=== PATIENT | male | born 1955 | race Two or more races ===

== ENCOUNTER 2020-09-03 10:15 | Inpatient (IN) | payer OTHER ==
[~2020-09-03] VITALS: Ht 165.1 cm; Wt 66.2 kg
[2020-09-03] MEDS ORDERED: COZAAR25 MG PO (15:02)
[2020-09-08] MEDS ORDERED: PANTOPRAZOLE SO40 MG (15:34)
[2020-09-08] MEDS ORDERED: VITAMIN D31250 MCG (15:34)
[2020-09-11] MEDS ORDERED: IMODIUM A-D2 MG PO (17:48)
[2020-09-12] MEDS ORDERED: ULTRACET PO (13:23)
[2020-09-12] MEDS ORDERED: TAMS0.4C PO (13:23)
== END 2020-09-12 15:57 | disposition home or self-care (01) | DRG 330 ==
LOC: O/R 09-08 08:00 → SURH 09-08 08:00
PROVIDERS: Surgery; ADMIT Colon & Rectal Surgery; ATTEND Colon & Rectal Surgery
PROC: 0D1B4Z4 Bypass Ileum to Cutaneous, Percutaneous Endoscopic Approach (ICD-10-PCS; principal; 2020-09-08 09:15)
PROC: 0T9B80Z Drainage of Bladder with Drainage Device, Via Natural or Artificial Opening Endoscopic (ICD-10-PCS; 2020-09-08 09:15)
DX: C18.3 Malignant neoplasm of hepatic flexure (principal); C78.6 Secondary malignant neoplasm of retroperitoneum and peritoneum; T83.83XA Hemorrhage due to genitourinary prosthetic devices, implants and grafts, initial encounter; N40.1 Benign prostatic hyperplasia with lower urinary tract symptoms; R31.0 Gross hematuria; I11.9 Hypertensive heart disease without heart failure; D50.0 Iron deficiency anemia secondary to blood loss (chronic); Y73.8 Miscellaneous gastroenterology and urology devices associated with adverse incidents, not elsewhere classified; R39.14 Feeling of incomplete bladder emptying; Z85.038 Personal history of other malignant neoplasm of large intestine

== ENCOUNTER 2022-05-31 15:07 | Inpatient (IN) | payer OTHER ==
[~2022-05-31] VITALS: Ht 165.1 cm; Wt 65.3 kg
[~2022-05-31 15:07] MED LIST: COZAAR25 MG PO; IMODIUM A-D2 MG PO; PANTOPRAZOLE SO40 MG; TAMS0.4C PO; ULTRACET PO; VITAMIN D31250 MCG
[2022-06-08] MEDS ORDERED: VITAMIN D31250 MCG (09:14)
== END 2022-06-10 14:05 | disposition home or self-care (01) | DRG 330 ==
LOC: O/R 06-07 05:55 → SURH 06-07 07:00 → SURG 06-07 13:56 → SURH 06-07 15:42
PROVIDERS: ADMIT Colon & Rectal Surgery; ATTEND Colon & Rectal Surgery
PROC: 07BC4ZX Excision of Pelvis Lymphatic, Percutaneous Endoscopic Approach, Diagnostic (ICD-10-PCS; 2022-06-07)
PROC: 0DTF4ZZ Resection of Right Large Intestine, Percutaneous Endoscopic Approach (ICD-10-PCS; principal; 2022-06-07 07:00)
DX: C18.3 Malignant neoplasm of hepatic flexure (principal); K92.1 Melena; K66.0 Peritoneal adhesions (postprocedural) (postinfection); I11.9 Hypertensive heart disease without heart failure